=== PATIENT | male | born 1995 | race Caucasian/White ===

== ENCOUNTER 2019-04-30 18:27 | Emergency (ER) | payer SELFPAY ==
[2019-04-30] MEDS ORDERED: IBUPROFEN 600 MG TABLET PO ONE (19:21)
--- NOTE | 2019-04-30 19:21 | ER Document Report ---
HPI - HPI Time Seen by Provider: 04/30/19 19:10 Pain Level: 3 Context: Patient is a 23-year-old male who presents emergency department with a chief complaint of shortness of breath. Patient states that every time he takes a deep breath it hurts. He states it hurts throughout his whole body. Patient has history of bronchitis and cardiac arrest with aspiration pneumonia. Patient states that he was diagnosed with bronchitis in November. In February he had aspiration pneumonia, because a friend had given him a pill and he went into cardiac arrest at that time. Patient is a half a pack and a smoker. Patient denies any fever or cough. Patient states that it feels the same as when he did when he had bronchitis. - CONSTITUTIONAL Constitutional: DENIES: Fever, Chills - EENT EENT: REPORTS: Nasal Drainage-Clear, Congestion. DENIES: Sore Throat, Ear Pain, Nasal Drainage-Purulent, Eye problems - NEURO Neurology: DENIES: Headache - CARDIOVASCULAR Cardiovascular: DENIES: Chest pain - RESPIRATORY Respiratory: REPORTS: Trouble Breathing, Coughing - GASTROINTESTINAL Gastrointestinal: DENIES: Nausea, Patient vomiting - REPRODUCTIVE Reproductive: DENIES: : - MUSCULOSKELETAL Musculoskeletal: DENIES: Extremity pain - DERM Skin Color: Normal Skin Problems: None Past Medical History - General Information source: Patient - Social History Smoking Status: Current Every Day Smoker Frequency of alcohol use: Rare Drug Abuse: None Family History: Reviewed & Not Pertinent Patient has suicidal ideation: No Patient has homicidal ideation: No Vertical Provider Document - CONSTITUTIONAL Agree With Documented VS: Yes Exam Limitations: No Limitations General Appearance: No Apparent Distress - INFECTION CONTROL TRAVEL OUTSIDE OF THE [place] IN LAST 30 DAYS: No - HEENT HEENT: Atraumatic, Normocephalic, PERRLA, Pharyngeal Tenderness, Pharyngeal Erythema. negative: Pharyngeal Exudate, Tympanic Membrane Red, Tympanic Membrane Bulging - NECK Neck: Normal Inspection, Supple - RESPIRATORY Respiratory: Breath Sounds Normal, No Respiratory Distress - CARDIOVASCULAR Cardiovascular: Regular Rate, Regular Rhythm, No Murmur Pulses: Normal: Radial - MUSCULOSKELETAL/EXTREMETIES Musculoskeletal/Extremeties: FROM - NEURO Level of Consciousness: Awake, Alert, Appropriate Motor/Sensory: No Motor Deficit, No Sensory Deficit - DERM Integumentary: Warm, Dry, No Rash Course - Re-evaluation Re-evalutation: 04/30/19 19:48 Patient's chest x-ray is negative for any acute findings. No pneumonia noted. Vital signs stable. I have a very low suspicion for a pulmonary emboli, ACS, or any life threatening etiology at this time. The patient will be sent home with an albuterol inhaler to help with his breathing. Discharge vital signs are improved. Follow-up precautions were given. Verbal discharge instructions were given to the patient. They verbalized understanding. They are stable for discharge. - Vital Signs Vital signs: Temp Pulse Resp BP Pulse Ox 97.9 F 75 18 150/117 H 98 04/30/19 18:33 04/30/19 18:33 04/30/19 18:33 04/30/19 18:33 04/30/19 18:33 Discharge - Discharge Clinical Impression: Shortness of breath Condition: Stable Disposition: HOME, SELF-CARE Additional Instructions: You were seen today in the emergency department for shortness of breath. Your chest x-ray did not show pneumonia. You are being sent home with an albuterol inhaler to help with your breathing. You can take 1 to 2 puffs every 4-6 hours as needed for shortness of breath. Please follow-up with a primary care provide r in regards to this visit. If you have worsening symptoms, please return to the emergency department. Forms: Return to Work
--- NOTE | 2019-04-30 19:45 | RADIOLOGY REPORT (SQ) ---
EXAM DESCRIPTION: CHEST 2 VIEWS COMPLETED DATE/TIME: 04/30/2019 7:27 pm REASON FOR STUDY: shortness of breath COMPARISON: None. EXAM PARAMETERS: NUMBER OF VIEWS: two views TECHNIQUE: Digital Frontal and Lateral radiographic views of the chest acquired. RADIATION DOSE: NA LIMITATIONS: none FINDINGS: LUNGS AND PLEURA: No opacities, masses or pneumothorax. No pleural effusion. MEDIASTINUM AND HILAR STRUCTURES: No masses or contour abnormalities. HEART AND VASCULAR STRUCTURES: Heart normal size. No evidence for failure. BONES: No acute findings. HARDWARE: None in the chest. OTHER: No other significant finding. IMPRESSION: NO ACUTE RADIOGRAPHIC FINDING IN THE CHEST. TECHNICAL DOCUMENTATION: JOB ID: [id number] [id number] 2010 [employer]- All Rights Reserved Reading location - IP/workstation name: [email or web address]
[2019-04-30] MEDS ORDERED: ALBUTEROL SULFATE HFA (90 MCG/PUFF) 8 GM MDI (1 MDI/ER DISP) IH PRN (19:47)
[2019-04-30 20:06] VITALS: BP 123/75
== END 2019-04-30 20:11 | disposition home or self-care (01) ==
LOC: ER 18:27
DX: R06.02 Shortness of breath (principal); M79.10 Myalgia, unspecified site; F17.200 Nicotine dependence, unspecified, uncomplicated
CPT/HCPCS: 99284; 71046; J3490